=== PATIENT | male | born 1970 | race Caucasian/White ===

== ENCOUNTER 2018-01-24 18:20 | Emergency (ER) | payer SELFPAY ==
[~2018-01-24] VITALS: Ht 584.7 cm; Wt 87.2 kg
[~2018-01-24 18:20] MED LIST: LEVA15HF4 IH; MULT-1179 PO; OMEG1CAP54 PO; [UNRECOGNIZED DRUG - OTHER]
[2018-01-24 18:48] LABS: BASOPHILS % (AUTO) 0.3 % (0-1); EOSINOPHILS # (AUTO) 0.2 X10'3 (0-0.9); EOSINOPHILS % (AUTO) 1.9 % (0-6); HEMATOCRIT 45.7 % (42.0-52.0); HEMOGLOBIN 15.8 g/dl (14.0-17.9); LYMPHOCYTES # (AUTO) 1.5 X10'3 (1.1-4.8); LYMPHOCYTES % (AUTO) 16.3 % (21-51); MEAN CORPUSCULAR HGB CONC 34.6 % (33.0-36.5); MEAN CORPUSCULAR VOLUME 83.8 FL (78-98); MEAN PLATELET VOLUME 10.2 FL (7.4-10.4); MONOCYTES # (AUTO) 0.5 X10'3 (0-0.9); MONOCYTES % (AUTO) 5.7 % (2-12); NEUTROPHILS # (AUTO) 6.8 X10'3 (1.8-7.7); NEUTROPHILS % (AUTO) 75.8 % (42-75); PLATELET COUNT 137 X10'3 (140-440); RED BLOOD COUNT 5.45 X10'6 (4.70-6.10); RED CELL DISTRIBUTION WIDTH 13.2 % (11.5-14.5); WHITE BLOOD COUNT 8.9 X10'3 (4.5-11.0)
[2018-01-24 18:58] LABS: PARTIAL THROMBOPLASTIN TIME 25 SECONDS (22-32); PROTHROMBIN TIME 10.3 SECONDS (9.0-12.0)
[2018-01-24 19:02] LABS: ALANINE AMINOTRANSFERASE 23 U/L (12-78); ALBUMIN 4.2 G/DL (3.4-5.0); ALBUMIN/GLOBULIN RATIO 1.8 (1.1-1.5); ALKALINE PHOSPHATASE 72 IU/L (46-116); ANION GAP 8 (8-16); ASPARTATE AMINO TRANSFERASE 15 U/L (10-37); BILIRUBIN,TOTAL 0.3 MG/DL (0.1-1.0); BLOOD UREA NITROGEN 16 MG/DL (7-18); BUN/CREATININE RATIO 13.3 (5.4-32.0); CHLORIDE 105 MMOL/L (99-107); GLUCOSE 115 MG/DL (70-104); POTASSIUM 3.5 MMOL/L (3.5-5.1); SODIUM 138 MMOL/L (135-145); TOTAL CARBON DIOXIDE 25.3 MMOL/L (24-32); TOTAL PROTEIN 6.6 G/DL (6.4-8.2); eGFR 64 ML/MIN
[2018-01-24] MEDS ORDERED: ketorolac trometh. 30mg/ml inj. IV ONE (19:40)
[2018-01-24] MEDS ORDERED: nitroGLYCERIN 1gm ointment UD TP ONE (19:55)
[2018-01-24] MEDS ORDERED: aspirin 81mg tab.chew PO ONE (19:55)
[2018-01-24 20:00] LABS: D-DIMER 0.52 MG/L FEU (0-0.50)
[2018-01-24] MEDS ORDERED: IBUP-1984 PO (20:02)
[2018-01-24] MEDS ORDERED: iohexol 350MG/ML 100ml bottle IV ONE (20:18)
[2018-01-24 22:02] VITALS: BP 139/79
== END 2018-01-24 22:03 | disposition left against medical advice (07) ==
LOC: ER 20:43
DX: I10 Essential (primary) hypertension (principal); Z79.899 Other long term (current) drug therapy
CPT/HCPCS: 36415; 71045; 71275; 80053; 84484; 85025; 85379; 85610; 85730; 93005; 96374; 99285; J1885; J7030; Q9967

== ENCOUNTER 2020-01-07 22:31 | Observation (INO) | payer MEDICAID ==
[~2020-01-07] VITALS: Ht 170.2 cm; Wt 90.0 kg
[~2020-01-07 22:31] MED LIST changes: +IBUP-1984 PO; -OMEG1CAP54 PO; -[UNRECOGNIZED DRUG - OTHER]
[2020-01-07] MEDS ORDERED: iohexol 350MG/ML 100ml bottle IV ONE (23:11)
[2020-01-07] MEDS ORDERED: nitroGLYCERIN 0.4mg/hour patch TD ONE (23:15)
[2020-01-07 23:16] LABS: BASOPHILS # (AUTO) 0.1 X10'3 (0-0.2); BASOPHILS % (AUTO) 0.6 % (0-1); EOSINOPHILS # (AUTO) 0.2 X10'3 (0-0.9); EOSINOPHILS % (AUTO) 2.2 % (0-6); HEMATOCRIT 46.5 % (42.0-52.0); LYMPHOCYTES # (AUTO) 1.4 X10'3 (1.1-4.8); MEAN CORPUSCULAR HEMOGLOBIN 28.5 PG (27.0-31.0); MEAN CORPUSCULAR HGB CONC 34.5 g/dL (33.0-36.5); MEAN CORPUSCULAR VOLUME 82.6 FL (78-98); MEAN PLATELET VOLUME 10.2 FL (7.4-10.4); MONOCYTES # (AUTO) 0.6 X10'3 (0-0.9); MONOCYTES % (AUTO) 6.1 % (2-12); NEUTROPHILS % (AUTO) 76.1 % (42-75); PLATELET COUNT 140 X10'3 (140-440); RED BLOOD COUNT 5.63 X10'6 (4.70-6.10); RED CELL DISTRIBUTION WIDTH 13.3 % (11.5-14.5); WHITE BLOOD COUNT 9.2 X10'3 (4.5-11.0)
[2020-01-07 23:27] LABS: PARTIAL THROMBOPLASTIN TIME 27 SECONDS (22-32)
[2020-01-07 23:30] LABS: ALANINE AMINOTRANSFERASE 23 U/L (12-78); ALBUMIN 4.2 G/DL (3.4-5.0); ALBUMIN/GLOBULIN RATIO 1.8 (1.1-1.5); ALKALINE PHOSPHATASE 70 IU/L (46-116); ANION GAP 10 (8-16); ASPARTATE AMINO TRANSFERASE 16 U/L (10-37); BILIRUBIN,TOTAL 0.6 MG/DL (0.1-1.0); BLOOD UREA NITROGEN 16 MG/DL (7-18); BUN/CREATININE RATIO 13.3 (5.4-32.0); CALCIUM 9.3 MG/DL (8.5-10.1); CHLORIDE 108 MMOL/L (99-107); GLUCOSE 107 MG/DL (70-104); POTASSIUM 3.9 MMOL/L (3.5-5.1); SODIUM 143 MMOL/L (135-145); TOTAL CARBON DIOXIDE 24.8 MMOL/L (24-32); TOTAL PROTEIN 6.6 G/DL (6.4-8.2); eGFR 64 ML/MIN
[2020-01-07 23:38] LABS: CLARITY,URINE CLEAR (Clear); COLOR,URINE YELLOW (Yellow); GLUCOSE, URINE NEGATIVE (Neg); KETONES,URINE NEGATIVE (Neg); LEUKOCYTE ESTERASE ,URINE NEGATIVE (Neg); NITRITES, URINE NEGATIVE (Neg); OCCULT BLOOD,URINE NEGATIVE (Neg); PH,URINE 5.5 (4.8-8.0); PROTEIN,URINE NEGATIVE (Neg); UROBILINOGEN,URINE 0.2 E.U/dL (0.2-1.0)
[2020-01-07 23:50] LABS: UA COLLECTION TYPE CLN CATCH MIDSTREAM
[2020-01-07] MEDS ORDERED: potassium CL 10mEq/100ml bag 100 ML IV PRN ×2 (23:50)
[2020-01-07] MEDS ORDERED: regadenoson 0.4mg/5ml syringe IV ONE ×2 (23:50→23:55)
[2020-01-07] MEDS ORDERED: aminophylline 250mg/10ml inj. IV PRN (23:50)
[2020-01-07] MEDS ORDERED: magnesium Cl slow-release 64mg tablet PO PRN (23:50)
[2020-01-07] MEDS ORDERED: potassium Cl 20 mEq SR tablet PO PRN ×2 (23:50)
[2020-01-07] MEDS ORDERED: acetaminophen 325mg tablet PO PRN (23:50)
[2020-01-07] MEDS ORDERED: aspirin 81mg tab.chew PO ONE (23:50)
[2020-01-07] MEDS ORDERED: magnesium 4gm in 100ml NS 100 ML IV PRN (23:50)
[2020-01-07] MEDS ORDERED: magnesium 2GM in 50ml NS 50 ML IV PRN (23:50)
[2020-01-07] MEDS ORDERED: morphine 2 MG/ML inj. syringe IV PRN (23:50)
[2020-01-07] MEDS ORDERED: ondansetron/PF 4mg/2ml inj IV PRN (23:50)
[2020-01-07] MEDS ORDERED: nitroGLYCERIN 0.4mg SUBLingual tab SL PRN (23:50)
[2020-01-07] MEDS ORDERED: magnesium hydroxide 30ml (MOM) UD suspension PO PRN (23:50)
[2020-01-07] MEDS ORDERED: mag hydrox/Alum hydrox/simeth 30ml oral suspension PO PRN (23:50)
[2020-01-07] MEDS ORDERED: metoprolol tartrate 1mg/ml inj IV PRN (23:50)
[2020-01-08] VITALS (10 sets, daily range): BP systolic 99–136; BP diastolic 55–86
[2020-01-08] MEDS ORDERED: NO HOME MEDS (00:12)
--- NOTE | 2020-01-08 01:31 | NUR ---
Patient in room ED 7. I have received report from Cap RN and had the opportunity to ask questions and awaiting arrival of patient to the PCU unit.
[2020-01-08 02:53] LABS: MAGNESIUM 2.1 MG/DL (1.5-2.4)
[2020-01-08 06:33] LABS: EOSINOPHILS # (AUTO) 0.2 X10'3 (0-0.9); HEMOGLOBIN 15.2 g/dl (14.0-17.9); LYMPHOCYTES # (AUTO) 1.8 X10'3 (1.1-4.8); MONOCYTES # (AUTO) 0.6 X10'3 (0-0.9)
[2020-01-08 06:35] LABS: BASOPHILS % (AUTO) 0.6 % (0-1); EOSINOPHILS % (AUTO) 2.8 % (0-6); HEMATOCRIT 43.9 % (42.0-52.0); LYMPHOCYTES % (AUTO) 22.7 % (21-51); MEAN CORPUSCULAR HEMOGLOBIN 28.9 PG (27.0-31.0); MEAN CORPUSCULAR HGB CONC 34.7 g/dL (33.0-36.5); MEAN CORPUSCULAR VOLUME 83.3 FL (78-98); MONOCYTES % (AUTO) 7.8 % (2-12); NEUTROPHILS # (AUTO) 5.3 X10'3 (1.8-7.7); NEUTROPHILS % (AUTO) 66.1 % (42-75); PLATELET COUNT 131 X10'3 (140-440); RED BLOOD COUNT 5.27 X10'6 (4.70-6.10); RED CELL DISTRIBUTION WIDTH 13.4 % (11.5-14.5)
--- NOTE | 2020-01-08 06:40 | NUR ---
Problems reprioritized. Patient report given, questions answered & plan of care reviewed with Eugene RN.
--- NOTE | 2020-01-08 07:00 | NUR ---
Patient in room PCU 3015. I have received report from STEVEN ADAMS and had the opportunity to ask questions and assume patient care.
[2020-01-08] MEDS ORDERED: enoxaparin 40mg/0.4ml syringe SQ SCH (08:00)
[2020-01-08] MEDS ORDERED: K and/or MAG REPLACEMENT MC SCH (08:00)
[2020-01-08] MEDS ORDERED: LISI1TAB32 PO (13:18)
== END 2020-01-08 14:12 | disposition home or self-care (01) ==
LOC: ER 22:32 → ED HOLD 23:50 → PCU 3S 01-08 01:35
PROVIDERS: ADMIT Family Medicine; ATTEND Family Medicine
DX: R07.89 Other chest pain (principal); I10 Essential (primary) hypertension; G89.29 Other chronic pain; M54.9 Dorsalgia, unspecified; R51 Headache; Z87.891 Personal history of nicotine dependence
CPT/HCPCS: 36415; 70450; 70496; 70498; 71045; 78452; 80053; 81003; 83735; 83880; 84484; 85025; 85610; 85651; 85730; 87081; 93005; 93017; 93306; 96372; 99285; A9500; G0378; J2785; Q9967; J1650

== ENCOUNTER 2025-04-04 13:47 | Emergency (ER) | payer MEDICAID, OTHER ==
[~2025-04-04] VITALS: Ht 170.2 cm; Wt 90.1 kg
[~2025-04-04 13:47] MED LIST changes: -IBUP-1984 PO; -LEVA15HF4 IH; +LISI1TAB49 PO; -MULT-1179 PO
[2025-04-04 13:58] VITALS: BP 141/82; PULSE 75; RESP 18; O2SAT 98
--- NOTE | 2025-04-04 14:26 | Physician Documentation ---
History of Present Illness ~ Chief Complaint: Laceration Stated Complaint: HAND LAC Time Seen by MD: 14:05 Primary Medical Doctor: [facility] HPI This is a 54-year-old male who presents with a laceration to the webspace between his 1st and 2nd fingers of right hand, patient reports laceration was caused by a broken broom handle patient reports no numbness in fingers and reports full range of motion intact to fingers. Patient reports last tetanus seven years prior. Tetanus Within 5 Years: Yes Medication Reconciliation Allergies: Coded Allergies: No Known Allergies (Unverified , 05/17/10) Scheduled Lisinopril/Hydrochlorothiazide (Lisinopril-Hctz 10-12.5 mg Tab), 1 TAB PO DAILY Past Medical History Past Medical History: *MUSCULOSKELETAL*, Chronic Back Pain Past Surgical History: no surgical history Alcohol Use: None Drug Use: none Lives with: Family Lives In: Home Occupation: employed Review of Systems ROS As stated above in the HPI, otherwise all systems are reviewed and negative. Physical Exam Vital Signs: Temperature: 97.9, Source: Temporal, Heart Rate: 75, Respiratory Rate: 18, BP: 141/82, Pulse Oximetry: 98, Weight: 90.100 Oxygen Flow Rate: 0 Physical Exam VITALS: Reviewed and as above. GENERAL: Alert, nontoxic appearing, no apparent distress. RESPIRATORY: No increased work of breathing, no respiratory distress, speaking in full clear sentences CV: Brisk capillary refill of fingers of right hand MUSCULOSKELETAL: Intact to fingers of right hand SKIN: Skin of the webspace between 1st and 2nd fingers of right hand approximately 2 cm laceration that does not involve tendons or deep structures, no evidence of retained foreign body NEURO: Intact to fingers of right hand Procedures Laceration/Wound Repair Laceration : Location: Right hand between 1st and 2nd fingers Length (cm): 2 Anesthesia: Lidocaine w/ Epi Volume Anesthetic (mls): 5 Prep: betadine, irrigated by nurse Margins: revised Foreign Body: not identified Repaired: skin Wound Repaired With: sutures Suture Size/Type: 5-0, prolene Number of Superficial Sutures: 8 Layer Closure?: No Dressing Applied: simple, other (Bulky) Splint Applied?: No Sling Applied?: No Tolerated Procedure Well?: yes, no complications Progress Results/Orders Results/Orders Vital Signs 04/04/25 04/04/25 13:58 16:05 Temp 97.9 97.9 Pulse 75 Resp 18 B/P (MAP) 141/82 Pulse Ox 98 O2 Flow Rate 0 Medical Decision Making Findings 54-year-old male presented with a laceration to the webspace between his 1st and 2nd fingers of his right hand, physical exam was reassuring as laceration was superficial without evidence of deep tissue injury or tendon involvement, it was reassuring that fingers were neurovascularly intact and range of motion was intact in all fingers. There was no evidence of retained foreign body. The laceration was successfully repaired with simple interrupted dermal sutures without complication. Patient provided home care instructions, return to care precautions, and follow up instructions which he verbalized understanding of. Differential Dx:Considerations: Include: Abrasion, Avulsion, Contusion, Fracture, Hematoma, Neurovascular injury, Retained foreign body, Other (Tendon injury) Departure Time of Disposition: 15:47 Disposition: 01 HOME / SELF CARE / HOMELESS Impression: Primary Impression: Laceration Condition: Improved Discharge Instructions: Laceration Care, Adult, [id number] Additional Instructions: Keep the area clean dry and covered, you may clean the area gently but do not soak it or submerge the wound in water, watch for signs of infection such as increased redness, swelling, or purulent discharge. Please return to the emergency department for signs of infection. Return to your choice of medical provider in seven days for a wound recheck and possible suture removal, sutures may need to stay in place for up to 10 days though. Please follow up with your primary care provider in the next few days. Please return to the emergency department for any new or worsening concerning symptoms including but not limited to signs of infection. Referrals: NO PRIMARY CARE PROVIDER (PCP) Education Educated: Patient Educated regarding: diagnosis, treatment, prognosis, need for follow up Signature Scribe Signature: No scribe Attestation: The note accurately reflects work and decisions made by me.MARIAMA Woodard 04/05/25 00:59 SHARON EVANS Apr 04, 2025 14:26 DELONTE BAÑUELOS MD Apr 06, 2025 06:21
[2025-04-04] MEDS: LIDOcaine 1% W/epiNEPHrine 1:100,000 20ml vial IJ ONE (14:42)
[2025-04-04] MEDS: TETanus/Pertussis (Acell)/Diphther VAC/PF (Tdap-Adult) 0.5ml syringe IMVAC ONE (14:42)
[2025-04-04 16:05] VITALS: TEMP 97.9
== END 2025-04-04 16:06 | disposition home or self-care (01) ==
LOC: ER 13:48
DX: S61.210A Laceration without foreign body of right index finger without damage to nail, initial encounter (principal); S61.212A Laceration without foreign body of right middle finger without damage to nail, initial encounter; G89.29 Other chronic pain; Z79.899 Other long term (current) drug therapy; X58.XXXA Exposure to other specified factors, initial encounter; Y93.89 Activity, other specified; Y92.89 Other specified places as the place of occurrence of the external cause; Y99.8 Other external cause status
CPT/HCPCS: 12001; 90471; 90715; 99283; J7030; A6402; A6449

== ENCOUNTER 2025-06-05 08:10 | Emergency (ER) | payer BC, OTHER ==
[~2025-06-05] VITALS: Ht 170.2 cm; Wt 88.7 kg
[2025-06-05 08:38] LABS: MEAN PLATELET VOLUME 9.8 FL (7.4-10.4); RED CELL DISTRIBUTION WIDTH 12.8 % (11.5-14.5)
[2025-06-05 08:45] LABS: LEUKOCYTE ESTERASE ,URINE NEGATIVE (Neg); NITRITES, URINE NEGATIVE (Neg); OCCULT BLOOD,URINE NEGATIVE (Neg)
[2025-06-05 08:48] LABS: UA COLLECTION TYPE CLN CATCH MIDSTREAM
[2025-06-05 08:56] LABS: CREATININE 0.99 MG/DL (0.60-1.10); TOTAL CARBON DIOXIDE 31.0 MMOL/L (24-32); eCRCL 78 ML/MIN; eGFR 78 ML/MIN
[2025-06-05 08:56] LABS: SQUAMOUS EPITHELIAL CELL,UR FEW /LPF (FEW)
[2025-06-05 09:02] LABS: FINE GRANULAR CAST 0-3 /LPF (NEGATIVE); HYALINE CASTS 0-3 /LPF (NEGATIVE)
--- NOTE | 2025-06-05 09:13 | Physician Documentation ---
History of Present Illness Chief Complaint: Abdominal Pain Stated Complaint: POSS SHINGLES ABD PAIN Time Seen by MD: 08:43 OK to notify your PCP?: Yes Primary Medical Doctor: [facility] Source: patient Mode of Arrival: POV HPI This is a 54-year-old male with no significant past medical history presents to the ER with a chief complaint of abdominal pain radiating to the groin. Has a associated costovertebral angle tenderness and sharp pain in the lower abdomen associated with tenderness. He also endorses burning micturition without hematuria. Denies any history of kidney stones in the past and denies fever. Patient states that he had upper back pain three days ago and went to the urgent care and was prescribed acyclovir for possible zoster infection as it felt similar to the previous shingles pain he had. However he has no rash. Day of Onset: Jun 05, 2025 Time of Onset: 08:00 Timing/Duration: hours Quality/Severity: severe Location: flank Radiation: groin Activities on Onset: spontaneous History Of: no pertinent history Associated Symptoms: back pain, dsyuria, frequency, urgency, weakness Medication Reconciliation Allergies: Coded Allergies: No Known Allergies (Unverified , 05/17/10) Scheduled Lisinopril/Hydrochlorothiazide (Lisinopril-Hctz 10-12.5 mg Tab), 1 TAB PO DAILY Past Medical History Past Medical History: *MUSCULOSKELETAL*, Chronic Back Pain Past Surgical History: no surgical history Alcohol Use: None Drug Use: none Lives with: Family Lives In: Home Occupation: employed Review of Systems ROS Constitutional: Weakness positive, No fever, chills, dizziness, weight gain or loss Eyes: No pain, erythema, discharge, blurring of vision ENT: No sore throat, epistaxis, tinnitus Cardiovascular: No palpitations, syncope, lower extremity edema, paroxysmal nocturnal dyspnea Respiratory: No hemoptysis Gastrointestinal: Abdominal pain radiating to groin positive, Normal appetite. No nausea, vomiting, diarrhea, constipation, hematemesis, bloating, melena or fresh blood Genitourinary: Positive urinary frequency, dysuria, no urgency, nocturia, hematuria Musculoskeletal: Pain in the right upper back, No arthralgias or myalgias Integumentary: No change in skin, hair, nails. No swelling, bruising, abrasions Neurologic: No headache, neck pain, numbness or tingling of the extremities, we akness Psychiatric: No delusions, depression, loss of interest in normal activity or change in sleep pattern, hallucinations, suicidal ideations Endocrine: No fatigue, weakness, polydipsia, polyuria, change in appetite, heat or cold intolerance, sweating, dry skin Hematological: No bleeding, petechiae, bruising Allergies: No asthma or urticaria Physical Exam Vital Signs: Temperature: 98.4, Source: Oral, Heart Rate: 85, Respiratory Rate: 16, BP: 156/95, Pulse Oximetry: 100, Weight: 88.700 Oxygen Flow Rate: 0 Physical Exam General: Awake and Alert, no acute distress. HEENT: Conjunctiva pink, Sclera clear, Mucus Membranes moist Neck: Supple without masses and tenderness. Resp: Unlabored. Equal breath sounds bilaterally. Heart: Regular rhythm, normal S1 and S2, no rub, murmur or gallop, muffled heart sounds. Abdomen: Diffusely Tender to palpation in the lower quadrants. Soft no organomegaly. Normal bowel sounds x4 quadrant normoactive. No guarding or rigidity. Extremities: Tenderness to palpation in the right upper back, Normal ROM, no swelling, nontender. No cyanosis,clubbing or edema. SURGICAL SERVICES TECH: No gross motor or sensory abnormalities. Skin: Warm and Dry. Progress Results/Orders Results/Orders Orders - SALOME VAUGHN, RES Ct Abdomen Pelvis (06/05/25 ) Lidocaine 5% Patch (Lidoderm 5% Patch) (06/05/25 08:55) Chest,Single View (06/05/25 ) Vital Signs 06/05/25 06/05/25 08:14 08:47 Temp 98.4 Pulse 85 Resp 16 16 B/P (MAP) 156/95 Pulse Ox 100 O2 Flow Rate 0 Laboratory Tests Test 06/05/25 08:19 06/05/25 08:30 Urine Specimen Description Cln catch midstream Urine Color Yellow Urine Clarity Clear Urine pH 6.0 Urine Specific [place] 1.025 Urine Protein 30 H Urine Glucose (UA) Negative Urine Ketones 15 H Urine Occult Blood Negative Urine Nitrite Negative Urine Bilirubin Small Urine Urobilinogen 1.0 Urine Leukocyte Esterase Negative Urine RBC 0-2 Urine WBC 10-20 H Urine Squamous Epithelial Cells Few Urine Bacteria Few Urine Culture Indicated Indicated Volume Urine Centrifuged 10 ml Urine Comment White Blood Count 14.0 H Red Blood Count 5.34 Hemoglobin 15.1 Hematocrit 44.4 Mean Corpuscular Volume 83.2 Mean Corpuscular Hemoglobin 28.3 Mean Corpuscular Hemoglobin Concent 34.0 Red Cell Distribution Width 12.8 Platelet Count 136 L Mean Platelet Volume 9.8 Neutrophils (%) (Auto) 83.7 H Lymphocytes (%) (Auto) 8.1 L Monocytes (%) (Auto) 7.1 Eosinophils (%) (Auto) 0.9 Basophils (%) (Auto) 0.2 Neutrophils # (Auto) 11.7 H Lymphocytes # (Auto) 1.1 Monocytes # (Auto) 1.0 H Eosinophils # (Auto) 0.1 Basophils # (Auto) 0.0 CBC Comment Sodium Level 139 Potassium Level 3.9 Chloride Level 104 Carbon Dioxide Level 31.0 Anion Gap 4 L Blood Urea Nitrogen 16 Creatinine 0.99 Estimated GFR/1.73 m2 78 BUN/Creatinine Ratio 16.2 Glucose Level 99 Calcium Level 9.2 Total Bilirubin 0.7 Aspartate Amino Transf (AST/SGOT) 15 Alanine Aminotransferase (ALT/SGPT) 15 Alkaline Phosphatase 73 Total Protein 6.8 Albumin 3.6 Globulin 3.2 Albumin/Globulin Ratio 1.1 Lipase 27 Chemistry Comments Medical Decision Making Additional information obtaine: other Findings Patient presented with abdominal pain radiating to the groin, [place] [address] with elevated neutrophils and low lymphocytes. Patient also endorses UTI symptoms and UA shows 10-20 urine WBC. One dose of 1 L NS bolus, Rocephin and Flagyl administered. Lidocaine patch has been placed for the right pain. CT abdomen showed acute sigmoid diverticulitis a nonobstructing renal calculus. Patient endorsed his wish to try outpatient antibiotics and return to the ER if the pain worsens. Patient will be discharged home with oral ciprofloxacin and Flagyl and low-dose opioid. Differential Dx:Considerations: Appendicitis, Constipation, Diverticular disease, Gastroenteritis, Hepatitis, Trauma, intraabdominal, Urinary obstruction, Urinary tract infection, Urolithiasis Additional Comments Diverticulitis Departure Disposition: 01 HOME / SELF CARE / HOMELESS Impression: Primary Impression: Diverticulitis Additional Impressions: Abdominal pain Acute urinary tract infection Condition: Stable Additional Instructions: Follow up with your PCP and industrial real estate agent in a week. We have prescribed antibiotics and pain medication for a few days. Take them as prescribed and pain medication as needed. About colonoscopy till your abdominal pain goes and schedule colonoscopy at a later date. Advise high-fiber diet and plenty hydration. Return to the ER if you have worsening abdominal pain or bloody stools. Referrals: NO PRIMARY CARE PROVIDER (PCP) Education Educated: Patient Educated regarding: treatment, prognosis, need for follow up Signature Scribe Signature: No scribe Attestation: PGY2 resident attestation: Patient was seen and examined with attending physician Dr. lam. Salome Syed MD PGY 2 internal medicine resident SALOME VAUGHN, RES Jun 05, 2025 09:13 DIANE LAM MD Jun 05, 2025 11:01
[2025-06-05] MEDS: normal saline 1000ML IV soln IVB ONE (09:24)
[2025-06-05] MEDS: CefTRIAXone/D5W-Rocephin 1gm 50 ML IV ONE (09:24)
--- NOTE | 2025-06-05 09:37 | RADIOLOGY REPORT ---
CHEST RADIOGRAPH Indication: Right upper back pain Technique: Single frontal view of the chest was obtained Comparison: None FINDINGS: Lines and Tubes: None Lungs: No focal consolidation. Pleura: No effusion. No pneumothorax. Cardiomediastinal contours: Unremarkable Bones: No acute osseous abnormality. IMPRESSION: No acute cardiopulmonary disease.
--- NOTE | 2025-06-05 10:50 | RADIOLOGY REPORT ---
CLINICAL HISTORY: pain radiating to groin, pyelonephritis/ kidneystones TECHNIQUE: CT of the abdomen and pelvis was performed without IV contrast. This exam was performed according to our departmental dose optimization program. Up-to-date CT equipment and radiation dose reduction techniques are utilized as appropriate. CTDI 23 DLP 1228 COMPARISON: None FINDINGS: Abdomen/Pelvis: The spleen, pancreas, gallbladder, liver, left kidney, bladder, and prostate gland are grossly unremarkable. There is a 1 mm nonobstructing right renal calculus. The abdominal aorta is normal in course and caliber. There are mild atherosclerotic calcifications. There is no free intraperitoneal air or fluid. There is no enlarged abdominal pelvic lymph node. There is no small bowel wall thickening or dilatation. The appendix is normal. There is colonic diverticulosis. There is moderate sigmoid colon wall thickening with moderate inflammation. Other: The imaged lower thorax is unremarkable. No acute osseous abnormality is evident. Impression: Acute sigmoid colon diverticulitis. Punctate nonobstructing right renal calculus.
[2025-06-05] MEDS ORDERED: METR-159 PO (11:03)
[2025-06-05] MEDS ORDERED: ONDA-243 PO (11:03)
[2025-06-05] MEDS ORDERED: HYDR-3973 PO (11:03)
[2025-06-05] MEDS ORDERED: CIPR-458 PO (11:03)
[2025-06-05] MEDS: metroNIDAZOLE-Flagyl 500mg/NS 100 ML IV STA (11:19)
[2025-06-05 12:23] VITALS: BP 132/78; PULSE 78; RESP 16; TEMP 98.4; O2SAT 99
== END 2025-06-05 12:26 | disposition home or self-care (01) ==
LOC: ER 08:11
DX: K57.32 Diverticulitis of large intestine without perforation or abscess without bleeding (principal); N39.0 Urinary tract infection, site not specified; G89.29 Other chronic pain; Z79.899 Other long term (current) drug therapy
CPT/HCPCS: 36415; 71045; 74176; 80053; 81001; 83690; 85025; 87088; 96365; 96367; 99285; J0696; J3490; J7030